=== PATIENT | male | born 1975 | race Native Hawaiian/Other Pacific Islander ===

== ENCOUNTER 2022-03-15 19:05 | Emergency (ER) | payer OTHER ==
[~2022-03-15] VITALS: Ht 160 cm; Wt 78.5 kg
[2022-03-15 19:05] VITALS: TEMP 97.9
[2022-03-15 19:58] LABS: PLATELET COUNT 269 K/uL (142-355)
[2022-03-15 20:05] LABS: POTASSIUM 4.3 mmol/L (3.6-5.2)
[2022-03-15 22:47] VITALS: BP 127/86
== END 2022-03-15 22:55 ==
LOC: ED 19:05
PROVIDERS: Emergency Medicine Emergency Medical Services
DX: R07.89 Other chest pain (principal)
CPT/HCPCS: 80053; 83735; 84484; 85027; 85379; 85610; 93005; 96360; 99284